=== PATIENT | female | born 2005 | race Caucasian/White ===

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

== ENCOUNTER 2025-01-04 11:46 | Outpatient (REF) | payer MEDICAID, SELFPAY ==
[2025-01-05 11:45] LABS: Chlamydia Result Negative (Negative); GC Result Negative (Negative)
== END 2025-01-04 11:47 | disposition home or self-care (01) ==
LOC: LBN 11:46
PROVIDERS: PCP Nurse Practitioner Pediatrics; Visit Provider Obstetrics & Gynecology
DX: R30.0 Dysuria (principal); Z01.419 Encounter for gynecological examination (general) (routine) without abnormal findings; O92.70 Unspecified disorders of lactation
CPT/HCPCS: 87491; 87591; 87086

== ENCOUNTER 2025-06-26 11:06 | Outpatient (REF) | payer MEDICAID, SELFPAY ==
[2025-06-27 12:15] LABS: Chlamydia Result Negative (Negative); GC Result Negative (Negative)
== END 2025-06-26 11:07 | disposition home or self-care (01) ==
LOC: LBN 11:06
PROVIDERS: PCP Nurse Practitioner Pediatrics; Visit Provider Nurse Practitioner Women's Health
DX: Z11.3 Encounter for screening for infections with a predominantly sexual mode of transmission (principal)
CPT/HCPCS: 87491; 87591